=== PATIENT | male | born 1965 | race Caucasian/White ===

== ENCOUNTER → 2017-05-01 | Outpatient (CLI) | payer BC ==
--- NOTE | 2017-05-01 23:08 | MR ---
EXAMINATION TYPE: MR shoulder LT wo con DATE OF EXAM: 05/01/2017 COMPARISON: NONE HISTORY: Shoulder pain for one week TECHNIQUE: Multiplanar, multisequence imaging of the left shoulder is performed without contrast. FINDINGS: There is shoulder joint effusion. There is fluid around the biceps tendon. There is extensive abnorma l increased signal in the supraspinatus tendon with partial retraction at the greater tuberosity of t he humerus. The AC joint is intact. The subscapularis tendon is intact. The glenoid dagoberto appear inta ct. I see no fracture. IMPRESSION: Shoulder joint effusion with large rotator cuff tear. There is also subdeltoid bursa fluid. No fractu re seen.
== END | disposition home or self-care (01) ==
LOC: RADMRIMAIN 17:15
PROVIDERS: ATTEND Family Medicine
DX: M25.412 Effusion, left shoulder (principal); M25.512 Pain in left shoulder; G89.29 Other chronic pain

== ENCOUNTER → 2018-03-19 | Outpatient (CLI) | payer BC ==
--- NOTE | 2018-03-19 18:15 | XR ---
EXAMINATION TYPE: XR lumbar spine 2 or 3V DATE OF EXAM: 03/19/2018 COMPARISON: NONE HISTORY: Low back pain TECHNIQUE: 3 views FINDINGS: Vertebra have normal alignment. Posterior elements are intact. Disc spaces are fairly akshat l. Sacroiliac joints are normal. IMPRESSION: Negative lumbar spine exam.
== END | disposition home or self-care (01) ==
LOC: CANPRECLI → LABYALE 17:09
PROVIDERS: ATTEND Family Medicine
DX: M16.12 Unilateral primary osteoarthritis, left hip (principal); M54.5 Low back pain
CPT/HCPCS: 72100

== ENCOUNTER → 2018-04-01 | Outpatient (CLI) | payer BC ==
--- NOTE | 2018-04-01 10:32 | XR ---
EXAMINATION TYPE: XR Hip Complete LT DATE OF EXAM: 04/01/2018 COMPARISON: NONE HISTORY: Pain TECHNIQUE: 2 views submitted FINDINGS: There is no evidence of erosive change or acute fracture. There is a severe concentric narrowing the joint space with hypertrophic change of the acetabulum. Va scular calcifications in the pelvis. Sclerosis overlying the greater trochanter likely related to [place]. IMPRESSION: 1. 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 2. There is a linear density along the femoral neck. This can occasionally be seen with stress injury . Recommend MRI or CT scan. A Angier level critical message alert has been initiated for All Mckenzie DO via the [employer] Critical Results System on 04/01/2018 10:30 AM. This message alert has been sent to All serrano DO via the preferences provided by the clinician for the receipt of Radiology Critical Findings . Message ID [id number].
== END | disposition home or self-care (01) ==
LOC: RADXRYALE 08:40
PROVIDERS: ATTEND Family Medicine
DX: M16.12 Unilateral primary osteoarthritis, left hip (principal); M54.5 Low back pain
CPT/HCPCS: 73502

== ENCOUNTER → 2018-04-03 | Outpatient (CLI) | payer BC ==
--- NOTE | 2018-04-03 10:25 | CT ---
EXAMINATION TYPE: CT lower extremity LT wo con DATE OF EXAM: 04/03/2018 COMPARISON: Left hip x-ray from 2 days earlier HISTORY: Left hip pain x [address] DLP: 647 mGycm Automated exposure control for dose reduction was used. FINDINGS: There is no acute fracture or dislocation in the left hip. There is moderate axial joint space loss a nd left hip fairly symmetric to visualized portion of right hip. There is some subchondral cystic jessica nge in the superior acetabulum. There is mild to moderate head neck collar spurring. No significant h ip joint effusion is seen. Muscle bulk in left thigh is felt within normal limits. No suspicious groi n adenopathy or hernia. A few scattered pelvic phleboliths are present. Prostate gland felt upper limits of normal in size. B ladder felt within normal limits. Visualized bowel is unremarkable. IMPRESSION: FAIRLY MODERATE OSTEOARTHRITIC CHANGES LEFT HIP. NO ACUTE FRACTURE OR DISLOCATION IS NOTED.
== END | disposition home or self-care (01) ==
LOC: RADCTMAIN 09:25
PROVIDERS: ATTEND Family Medicine
DX: M16.12 Unilateral primary osteoarthritis, left hip (principal); M54.5 Low back pain; R93.7 Abnormal findings on diagnostic imaging of other parts of musculoskeletal system

== ENCOUNTER → 2018-05-03 | Outpatient (CLI) | payer BC ==
--- NOTE | 2018-05-03 16:01 | XR ---
EXAMINATION TYPE: XR chest 2V DATE OF EXAM: 05/03/2018 COMPARISON: NONE TECHNIQUE: PA and lateral views submitted. HISTORY: Preop FINDINGS: The lungs are clear and there is no pneumothorax, pleural effusion, or focal pneumonia. There is a nodular density in the right upper lobe measuring approximately 1.5 cm. Hypertrophic and degenerative change spine. Mild superior endplate deforming the lower thoracic region likely chronic. No overt fa ilure. IMPRESSION: 1. There is a 1.5 cm mass right upper lobe recommend CT scan of the chest.
== END | disposition home or self-care (01) ==
LOC: RADXRYALE 15:30
PROVIDERS: ATTEND Family Medicine
DX: Z01.818 Encounter for other preprocedural examination (principal); R91.8 Other nonspecific abnormal finding of lung field
CPT/HCPCS: 71046

== ENCOUNTER → 2018-05-04 | Outpatient (CLI) | payer BC ==
[2018-05-04 09:16] LABS: Basophils # (A) 0.1 k/uL (0-0.2); Basophils % (A) 1 %; Eosinophils # (A) 0.1 k/uL (0-0.7); Eosinophils % (A) 1 %; HCT 47.8 % (39.0-53.0); HGB 15.6 gm/dL (13.0-17.5); Lymphocytes # (A) 1.3 k/uL (1.0-4.8); Lymphocytes % (A) 19 %; MCH 28.2 pg (25.0-35.0); MCHC 32.6 g/dL (31.0-37.0); MCV 86.4 fL (80.0-100.0); Mean Platelet Volume 6.8; Monocytes # (A) 0.4 k/uL (0-1.0); Monocytes % (A) 6 %; Neutrophils # (A) 5.2 k/uL (1.3-7.7); Neutrophils % (A) 72 %; Platelet Count 207 k/uL (150-450); RBC 5.53 m/uL (4.30-5.90); RDW 12.6 % (11.5-15.5); WBC 7.3 k/uL (3.8-10.6)
[2018-05-04 09:27] LABS: INR 1.1 (<1.2); Partial Thromboplastin Time 22.8 sec (22.0-30.0); Prothrombin Time 10.4 sec (9.0-12.0)
[2018-05-04 09:28] LABS: Anion Gap 9 mmol/L; Blood Urea Nitrogen 18 mg/dL (9-20); Calcium 9.2 mg/dL (8.4-10.2); Carbon Dioxide 25 mmol/L (22-30); Chloride 100 mmol/L (98-107); Glucose 239 mg/dL (74-99); Potassium 4.5 mmol/L (3.5-5.1); Sodium 134 mmol/L (137-145)
[2018-05-04 09:33] LABS: Appearance,Urine Clear (Clear); Bilirubin,Urine Negative (Negative); Blood,Urine Negative (Negative); Color,Urine Yellow; Glucose,Urine (UA) Negative (Negative); Ketones,Urine Negative (Negative); Leukocyte Esterase,Urine Negative (Negative); Nitrite,Urine Negative (Negative); PH, Urine 5.5 (5.0-8.0); Protein,Urine Trace (Negative); Specific Gravity,Urine 1.017 (1.001-1.035); Urobilinogen,Urine <2.0 mg/dL (<2.0)
== END | disposition home or self-care (01) ==
LOC: LABPAT 08:21
PROVIDERS: ATTEND Orthopaedic Surgery Orthopaedic Surgery of the Spine
DX: Z01.812 Encounter for preprocedural laboratory examination (principal); M51.26 Other intervertebral disc displacement, lumbar region
CPT/HCPCS: 36415; 80048; 81003; 85025; 85610; 85730; 86850; 86900; 86901

== ENCOUNTER 2018-05-08 10:24 | Day surgery (SDC) | payer BC ==
[2018-05-02 11:10] VITALS: BMI 31.9
[~2018-05-08 10:24] MED LIST: DEXAMETHASONE SOD PHOSPHATE 10 MG/ML 1 ML VIAL IV ONE; LACTATED RINGERS 1,000 ML IV SCH; LIDOCAINE 1% 20 ML VIAL (10MG/ML) FOR IV START INTRADERMA PRN; MIDAZOLAM 2 MG/2 ML VIAL IV PRN; ONDANSETRON 4 MG/2 ML VIAL IVP ONE; SCOPOLAMINE 1.5MG/72HR PATCH TRANSDERM ONE; SODIUM CHLORIDE 0.9% 1,000 ML IRRIGATION ONE; SODIUM CHLORIDE 0.9% IRRIGATIO 1,000 ML IRRIGATION ONE; ceFAZolin IN SWFI 2 GM/20 ML SYRINGE IVP ONE
[2018-05-08 10:40] VITALS: RESP 16
[2018-05-08 10:55] LABS: Glucose,Whole Blood 129 mg/dL (75-99)
[2018-05-08] MEDS ORDERED: LIDOCAINE 1% INJ 10MG/ML (20 ML MDV) ONE (11:47)
[2018-05-08] MEDS ORDERED: fentaNYL (PF) 50 MCG/ML 2 ML AMP ONE (11:47)
[2018-05-08] MEDS ORDERED: NEOSTIGMINE 1 MG/ML 10 ML VIAL ONE (11:47)
[2018-05-08] MEDS ORDERED: ROCURONIUM BROMIDE 10 MG/ML 10 ML VIAL IV ONE (11:47)
[2018-05-08] MEDS ORDERED: PROPOFOL 10 MG/ML 20 ML VIAL IV ONE (11:47)
[2018-05-08] MEDS ORDERED: MIDAZOLAM 2 MG/2 ML VIAL ONE (11:47)
[2018-05-08] MEDS ORDERED: SUCCINYLCHOLINE CHLORIDE 100 MG/5 ML SYR IV ONE (11:47)
[2018-05-08] MEDS ORDERED: GLYCOPYRROLATE 0.2 MG/ML 2 ML VIAL ONE (11:47)
[2018-05-08] MEDS ORDERED: LIDOCAINE 0.5%-EPI 1:200,000 50 ML VIAL SQ ONE (12:04)
[2018-05-08] MEDS ORDERED: methylPREDNISolone ACETATE 40 MG/ML 1 ML VIAL MISCELLANE ONE (12:04)
[2018-05-08] MEDS ORDERED: GELATIN SPONGE,ABSORB (LARGE) 1 EACH SPONGE TOPICAL ONE (12:04)
[2018-05-08] MEDS ORDERED: THROMBIN (BOVINE) 5,000 UNIT VIAL TOPICAL ONE (12:04)
[2018-05-08] MEDS ORDERED: BACITRACIN 50,000 UNIT, POLYMYXIN B 500,000 UNIT in SODIUM CHLORIDE 0.9% IRRIGATIO 1,00... IRRIGATION ONE (12:25)
[2018-05-08] MEDS ORDERED: LACTATED RINGERS 1,000 ML IV ONE (12:27)
[2018-05-08] MEDS ORDERED: HYDROcodone/APAP 7.5-325MG 1 EACH TAB PO PRN ×2 (13:05→13:14)
[2018-05-08] MEDS ORDERED: HYDROmorphone 1 MG/ML 1 ML SYRINGE IVP PRN ×2 (13:07)
[2018-05-08] MEDS ORDERED: ONDANSETRON 4 MG/2 ML VIAL IVP PRN (13:07)
[2018-05-08] MEDS ORDERED: KETOROLAC 30 MG/ML 1 ML VIAL IVP PRN (13:07)
[2018-05-08] MEDS ORDERED: IBUPROFEN 600 MG TAB PO PRN (13:07)
[2018-05-08] MEDS ORDERED: BENZOCAINE/MENTHOL LOZENG 1 EACH LOZENGE MUCOUS MEM PRN (13:07)
--- NOTE | 2018-05-08 13:14 | P.OP ---
Date of Procedure: 05/08/18 Preoperative Diagnosis: Herniated nucleus pulposis L4 5, left lower extremity radiculopathy, low back pain Postoperative Diagnosis: same Anesthesia: GETA Pathology: none sent Condition: stable Disposition: PACU Description of Procedure: BRIEF OPERATIVE NOTE Preoperative Diagnosis: Herniated nucleus pulposis L45, lower extremity radiculopathy, low back pain Postoperative Diagnosis: Same Procedure: Laminectomy and decompression L4 5 Discectomy for decompression L4 5 Fluoroscopic guidance Surgeon: [facility]. [facility] Social Worker: Jameson Zhou is present throughout the entire the case persistence during positioning, dissection, exposure, visualization, and all crucial elements of the case as well as closure. Anesthesia: General anesthesia per Dr. Dr. Ramirez Estimated blood loss: Approximately 50 mL Complications: None apparent Components implanted: None Disposition: To recovery room in good stable condition. OPERATIVE INDICATIONS The patient has been having issues in their lower back and lower extremities. He was found to have a large disc herniation at L4 5 on left side which correlated well with his low back and left lower extremity symptoms. He was having severe radiculopathy in his left lower extremity. He had some evidence of weakness with forced flexion as well. He is not having any benefit despite conservative treatment. The patient has been through conservative treatment. We discussed various treatment options including surgery, and the patient wishes to proceed with surgery We discussed the risk, patient's alternatives and benefits of surgery including but not limited to, risk of bleeding risk of infection, risk of need for further surgery, risk of decreased, loss of motion, loss of function, nerve damage, paralysis, heart attack, blindness and . OPERATIVE SUMMARY After discussing all the risks, patient alternatives and benefits at length, the patient elected to proceed with surgical intervention, signed informed consent, and presented for their procedure. The patient was seen and examined in the preoperative holding area and the surgical site was marked. The patient was given antibiotics and brought to the operating room. The patient was sedated and intubated by anesthesia in standard fashion. The patient was positioned on to the operating room table in a prone position on the appropriate frame which was well-padded and well molded. We were careful to pad any bony prominences and pressure points. We were careful to maintain the patient's cervical spine and good neutral alignment and position throughout. The patient was prepped and draped in a normal standard fashion. An appropriate timeout and keystone protocol performed. We were able to proceed with the surgery. Fluoroscopy was utilized to establish the appropriate level at L4 5 . The local wound area was infiltrated with local anesthetic. An incision was made at the midline longitudinally over the appropriate levels at L4 5. Dissection was taken down subcutaneously to the level of the fascia which was split midline. Dissection was taken over the lamina. Intraoperative fluoroscopy was taken which showed a marker at the appropriate level. With the appropriate level positively confirmed, we were able to proceed with laminectomy. The wound was copiously irrigated and suctioned dry as had been done periodically throughout the case. I performed a laminectomy with a combination of curettes and a high-speed bur and Kerrison rongeurs. A small medial facetectomy was performed again further access. A partial foraminotomy was also performed. Portions of the ligamentum flavum were taken down to expose the dura and traversing nerve root. I was able to mobilize the traversing nerve root and gain access to the disc space. Note was made of obvious compression from the disc. there was some extruded fragment of disc material in the subligamentous area. Protecting the soft tissue structures, a small annulotomy was established. I was able to perform discectomy and remove any extruded disc fragments and any loose fragments from within the disc itself. There are number of extruded small fragments of disc which were removed. There is some disc desiccation noted. I tried to preserve the disc annulus that appeared stable. There were no further extruded fragments noted. There is no evidence of dural tear or leak. Good hemostasis maintained. The wound was copiously irrigated and suctioned dry. Good decompression and discectomy was noted. We were able to proceed with closure. The fascia was closed for a watertight closure. The subcuticular tissue was closed with absorbable suture. The wound was cleaned and dried and dressed with the appropriate dressing. The drapes were broken down. The patient was gently rolled back onto their hospital bed being careful to maintain their cervical spine and good neutral alignment and position. They were woken up by anesthesia, extubated, and brought to the recovery room in good stable condition. The patient will be admitted to the hospital for observation and for appropriate postoperative care, medical management and monitoring. We will continue to follow them closely about the postoperative course.
[2018-05-08] MEDS ORDERED: SODIUM CHLORIDE 0.9% 1,000 ML IV SCH (13:15)
--- NOTE | 2018-05-08 13:29 | FL ---
EXAMINATION TYPE: FL guidance operating room DATE OF EXAM: 05/08/2018 HISTORY: Flouroscopy time 3 seconds of fluoroscopy provided. IMPRESSION: 1. Fluoroscopy time.
[2018-05-08] MEDS: HYDROmorphone 0.5 MG/0.5 ML SYRINGE IVP PRN ×2 (13:38→13:48)
[2018-05-08 13:57] LABS: Glucose,Whole Blood 138 mg/dL (75-99)
[2018-05-08 16:56] VITALS: BP 121/74; PULSE 77; TEMP 98
[2018-05-08] MEDS ORDERED: ceFAZolin IN SWFI 2 GM/20 ML SYRINGE IVP SCH (20:00)
[2018-05-09] MEDS ORDERED: glipiZIDE 10 MG TAB PO SCH (07:30)
== END 2018-05-08 18:30 | disposition home or self-care (01) ==
LOC: OR 10:24 → 3SUR 13:15 → OR 18:30
PROVIDERS: ATTEND Orthopaedic Surgery Orthopaedic Surgery of the Spine
DX: M51.16 Intervertebral disc disorders with radiculopathy, lumbar region (principal); E11.9 Type 2 diabetes mellitus without complications; Z79.84 Long term (current) use of oral hypoglycemic drugs; Z79.891 Long term (current) use of opiate analgesic; Z79.899 Other long term (current) drug therapy
CPT/HCPCS: 63030; J2250; J1030; J2405; J1170; J0690; 36415; 86850; 86900; 86901

== ENCOUNTER → 2018-06-06 | Outpatient (CLI) | payer BC ==
[2018-06-06 13:30] LABS: Blood Urea Nitrogen 20 mg/dL (9-20)
--- NOTE | 2018-06-06 14:34 | CT ---
EXAMINATION TYPE: CT chest w con DATE OF EXAM: 06/06/2018 COMPARISON: Chest x-ray 05/03/2018 HISTORY: Solitary pulmonary nodule. CT DLP: 537.7 mGycm Automated exposure control for dose reduction was used. CONTRAST: CT scan of the chest is performed with IV Contrast, patient injected with 100 mL of Isovue M300. FINDINGS: LUNGS: The lungs are remarkable for a soft tissue focus within the right upper lobe corresponding to the abnormality seen on x-ray and measures approximately 2 cm in greatest transverse dimension extend ing into the pleural surface by 12 mm x 10 mm. Smaller soft tissue foci are present on axial image 3 3 in the right upper lobe, the larger with possible extension is to the pleural surface, lesion measu ring approximately 9 to 10 mm. There are additional soft tissue nodules in the left upper lobe, bilat eral lower lobes, within the lingula 12 mm focus is measured and within the left lower lobe periphera lly there is a 14 mm soft tissue nodule extending to the pleural surface on axial image 49, soft tiss ue nodule on axial image 51 in the left lower lobe measures 6 mm, right lower lobe nodule on image 44 measures 7 mm and on axial image 41 5 mm, right middle lobe also shows a peripheral nodule measuring 8 to 9 mm extending to the pleural surface, similar-appearing nodule and image 38 within the right m iddle lobe measures 7 mm anteriorly. Scattered smaller nodules are present. Interstitium is prominent . There is no pleural effusion or pneumothorax seen. The tracheobronchial tree is patent. MEDIASTINUM: Bilateral hilar nodes are present. Prevascular node is enlarged measuring 13 to 14 mm, p retracheal, retrocaval nodes measures 10 mm.1 pulmonary artery is prominent, correlate for pulmonary artery hypertension. AORTA: No additional significant abnormality is seen. OTHER: The liver shows low attenuation possibly due to hepatic steatosis. There may be a small hiata l hernia. IMPRESSION: Differential includes granulomatous disease, both infectious and noninfectious such as s arcoid. Metastatic disease is not excluded. Correlate for pulmonary artery hypertension.
== END | disposition home or self-care (01) ==
LOC: RADCTMAIN 12:55
PROVIDERS: ATTEND Family Medicine
DX: Z01.812 Encounter for preprocedural laboratory examination (principal); R91.1 Solitary pulmonary nodule
CPT/HCPCS: 82565; 84520; 71260; 36415; Q9967

== ENCOUNTER → 2018-07-08 | Outpatient (CLI) | payer BC ==
[2018-07-08 20:49] LABS: Alpha Fetoprotein, Tumor Mkr <2.5 ng/mL (0.0-7.9)
[2018-07-08 21:00] LABS: Cancer Antigen 19-9 29.3 U/mL (0.0-34.9)
== END | disposition home or self-care (01) ==
LOC: LABWHC1 14:21
PROVIDERS: ATTEND Internal Medicine Critical Care Medicine
DX: R91.8 Other nonspecific abnormal finding of lung field (principal)
CPT/HCPCS: 36415; 82105; 82164; 82378; 83615; 86301

== ENCOUNTER → 2019-02-04 | Outpatient (CLI) | payer BC ==
[2019-02-04 07:01] LABS: Blood Urea Nitrogen 17 mg/dL (9-20)
--- NOTE | 2019-02-04 09:15 | CT ---
EXAMINATION TYPE: CT chest w con DATE OF EXAM: 02/04/2019 COMPARISON: PET/CT dated 07/13/[address] dated 06/06/2018 HISTORY: Previous abnormal exam lung field CT DLP: 616.60 mGycm. Automated Exposure Control for Dose Reduction was Utilized. TECHNIQUE: CT scan of the thorax is performed following with IV Contrast, patient injected with 100 ml mL of Isovue 300. FINDINGS: LUNGS: There are multiple bilateral pulmonary nodules as marked on the images. The largest is seen in the right upper lobe on series 4 image 29 currently measuring 8 mm and previously measuring 1.2 cm w ith spiculated margins. Another more rounded 8 mm pulmonary nodule is seen in the right middle lobe o n image 40. This previously measured 9 mm on the exam of 06/06/2018. No new pulmonary nodules are appr eciated. On the left the largest pulmonary nodules are seen at the left lung base in the lower lobe a nd lingula currently measuring 7 mm and 8 mm respectively and previously measuring 9 mm and 1.1 cm. T here is also slight decrease in size of the left lower lobe pulmonary nodule on image 51 of series 4. MEDIASTINUM: There are no greater than 1 cm hilar or mediastinal lymph nodes. A prevascular lymph no de measures 9 mm in short axis and previously measured 1.3 cm in short axis on the exam of 06/06/2018. A right paratracheal lymph node measures 8 mm in short axis and previously measured 1.0 cm in short axis. No hilar adenopathy is seen. No pericardial effusion is seen. Pulmonary arteries again enlarge d. There is a normal variant direct origin of the left vertebral artery from the aortic arch. Scant c oronary artery calcifications are seen. OTHER: There is a small hiatal hernia. There is probable mild degree hepatic steatosis and a 2.3 cm b enign hepatic cyst. Stable lower thoracic compression deformities and moderate degenerative changes o f the thoracic spine are present. IMPRESSION: 1. Stable number and slight decreased size of the largest pulmonary nodules in comparison to exam of 06/06/2018. This in combination with the prior PET/CT suggests etiology such as granulomatous disease, sarcoid, or other infectious/inflammatory nodule in the absence of treatment for metastatic disease. 2. Improved mediastinal adenopathy with no current enlarged nodes by size criteria. 3. Stable lower thoracic compression deformities.
== END | disposition home or self-care (01) ==
LOC: RADCTMAIN 06:19
PROVIDERS: ATTEND Internal Medicine Critical Care Medicine
DX: R91.8 Other nonspecific abnormal finding of lung field (principal); R59.0 Localized enlarged lymph nodes; M53.84 Other specified dorsopathies, thoracic region
CPT/HCPCS: 82565; 84520; 71260; 36415; Q9967

== ENCOUNTER → 2024-01-04 | Outpatient (CLI) | payer BC ==
--- NOTE | 2024-01-04 10:13 | XR ---
EXAM TYPE: LUMBAR SPINE X RAY SERIES COMPARISON: NONE HISTORY: Pain TECHNIQUE: 4 views are submitted. FINDINGS: Alignment is anatomic. The pedicles are intact. The transverse processes are intact. There is mult ilevel degenerative disc disease most marked at L4-5 and L5-S1 with facet arthropathy. Foraminal encr oachment. Calcifications in the pelvis are likely vascular bilateral hip arthropathy. Minimal grade 1 anterolisthesis L4-L5. IMPRESSION: 1. Moderate degenerative disc disease L4-5 and L5-S1 with facet arthropathy and suspected foraminal e ncroachment.
--- NOTE | 2024-01-04 10:15 | XR ---
EXAMINATION TYPE: XR thoracic spine complete DATE OF EXAM: 01/04/2024 COMPARISON: CT scan 02/04/2019 HISTORY: Pain TECHNIQUE: 3 views submitted FINDINGS: Alignment is anatomic. There is multilevel mild degenerative disc disease with stable appearing endp late and mild wedge deformities lower thoracic spine unchanged from CT chest 02/04/2019. Small hiatal h ernia suspected. IMPRESSION: 1. Multilevel mild degenerative disc disease with a mild wedge or endplate compression fracture lower thoracic spine appear chronic.
== END | disposition home or self-care (01) ==
LOC: RADXRYALE 09:36
PROVIDERS: ATTEND Family Medicine
DX: M51.37 Other intervertebral disc degeneration, lumbosacral region (principal); M51.34 Other intervertebral disc degeneration, thoracic region; M47.817 Spondylosis without myelopathy or radiculopathy, lumbosacral region; M48.54XA Collapsed vertebra, not elsewhere classified, thoracic region, initial encounter for fracture
CPT/HCPCS: 72072; 72110